=== PATIENT | male | born 1970 | race Caucasian/White ===

== ENCOUNTER 2023-07-13 14:47 | Emergency (ER) | payer OTHER, SELFPAY ==
[2023-07-13 15:01] VITALS: BP 98/67; PULSE 103; RESP 16; TEMP 37.2; O2SAT 94
[2023-07-13 15:07] VITALS: BP 130/90; PULSE 118; O2SAT 98; BMI 29.8
[2023-07-13 15:11] VITALS: BP 108/61; PULSE 98; RESP 22
--- NOTE | 2023-07-13 16:08 | ECG_ITS ---
Test Reason : FALL Blood Pressure : / mmHG Vent. Rate : 093 BPM Atrial Rate : 093 BPM P-R Int : 224 ms QRS Dur : 086 ms QT Int : 366 ms P-R-T Axes : 040 -08 006 degrees QTc Int : 455 ms Sinus rhythm with 1st degree A-V block Otherwise normal ECG No previous ECGs available Referred By: Generic ED Physician Electronically Signed By:JESSE GRIFFIN MD
[2023-07-13 16:22] LABS: MANUAL DIFF FLAG NO
[2023-07-13 16:23] LABS: Basophils Absolute Auto 0.1 X10*3/uL (0.0-0.2); Basophils Percent Auto 0.7 % (0-2); Eosinophils Percent Auto 0.5 % (0-4); Hematocrit 40.3 % (42.0-52.0); Hemoglobin 13.6 g/dl (14.0-18.0); Imm Gran Abs Auto 0.02 X10*3/uL (0.00-0.03); Imm Gran Pct Auto 0.3 % (0.0-0.4); Lymphocytes Percent Auto 26.1 % (20-40); Mean Corpuscular HGB Conc 33.7 g/dl (31.0-36.0); Mean Corpuscular Volume 82.9 fL (80.0-98.0); Mean Platelet Volume 10.1 fL (9.4-12.4); Monocytes Absolute Auto 0.6 X10*3/uL (0.1-1.2); Monocytes Percent Auto 7.7 % (2-11); Neutrophils Absolute Auto 4.9 x10*3/uL (2.0-8.3); Neutrophils Percent Auto 64.7 % (45-73); Platelet Count 297 X10*3/uL (160-400); Red Blood Count 4.86 X10*6/uL (4.60-5.80); White Blood Count 7.5 X10*3/uL (4.8-10.8)
--- NOTE | 2023-07-13 16:35 | ED_ITS ---
HPI - Fall General Chief Complaint: Fall Stated Complaint: WEAK,FALL SIDE OF ROAD, H/O MS PER EMS Time Seen by Provider: 07/13/23 16:30 Source: patient Mode of arrival: EMS Limitations: no limitations History of Present Illness ED Provider: ivana PAN Narrative: Patient's history of MS not taking any medication walks with walker was at local grocery store getting stuff lost balance and fell bystander called the EMS patient denied any significant injuries does not know why he is here had only 3 beer prior to arrival Related Data Allergies Allergy/AdvReac Type Severity Reaction Status Date / Time No Known Allergies Allergy Verified 07/13/23 15:10 Review of Systems 2 Review of Systems: Yes all other systems are reviewed and are negative [facility] Social History Social History Alcohol intake: current Alcohol type: beer Smoked in Last 30 Days: Yes Use of substances other than those prescribed or required for medical reasons: No Advance Directives: No Advance Directives Information Provided: No Do you have a plan to hurt others: No Plan Physical Exam 2 Vital Signs: Vital Signs: Last Vital Signs Temp 99.0 F 07/13/23 15:01 Pulse 98 07/13/23 15:11 Resp 22 H 07/13/23 15:11 BP 108/61 07/13/23 15:11 Pulse Ox 94 07/13/23 15:01 O2 Del Method Room Air 07/13/23 15:01 BMI result Body Mass Index 29.8 Appearance: Alert. Oriented X3. No acute distress. Eyes: PERRLA, No Nystagmus ENT: Pharynx normal. Oral Mucosa moist atraumatic normocephalic Neck: Normal inspection. Neck supple. CVS: Normal heart rate and rhythm. Pulses normal. Respiratory: No respiratory distress. Equal air entry bilateral, no wheezing/rales/rhonchi Abdomen: Soft and nontender. Bowel sounds are present, no mass palpable, no CVA tenderness Skin: Skin warm and dry. Normal skin color. Normal skin turgor. Extremities: No lower extremity edema. No calf tenderness Neuro: Oriented X 3. Residual weakness left No sensory deficit.No cerebellar signs , cranial nerves II-XII intact Medical Decision Making Medical Decision Making MDM Narrative: Patient is status post mechanical fall with chronic balance problems walking with a walker secondary to MS no signs of injury will discharge patient Lab Data [facility] Lab Attestation statement: I reviewed the patient's lab results. 07/13/23 16:18 07/13/23 16:19 Labs: Lab Results 07/13/23 07/13/23 Range/Units 16:18 16:19 WBC 7.5 (4.8-10.8) X10*3/uL RBC 4.86 (4.60-5.80) X10*6/uL Hgb 13.6 L (14.0-18.0) g/dl Hct 40.3 L (42.0-52.0) % MCV 82.9 (80.0-98.0) fL MCH 28.0 (27.0-33.0) pg MCHC 33.7 (31.0-36.0) g/dl RDW 15.0 (11.0-16.0) % Plt Count 297 (160-400) X10*3/uL MPV 10.1 (9.4-12.4) fL Immature Gran % (Auto) 0.3 (0.0-0.4) % Neut % (Auto) 64.7 (45-73) % Lymph % (Auto) 26.1 (20-40) % [place] % (Auto) 7.7 (2-11) % Eos % (Auto) 0.5 (0-4) % Baso % (Auto) 0.7 (0-2) % Lymph # (Auto) 2.0 (1.2-4.9) X10*3/uL [place] # (Auto) 0.6 (0.1-1.2) X10*3/uL Eos # (Auto) 0.0 (0.0-0.4) X10*3/uL Baso # (Auto) 0.1 (0.0-0.2) X10*3/uL Abs Immat Gran (auto) 0.02 (0.00-0.03) X10*3/uL Absolute Neuts (auto) 4.9 (2.0-8.3) x10*3/uL Absolute Nucleated RBC 0.000 (0.0-0.012) X10*3/uL Nucleated RBC % (auto) 0.0 (0.0-0.2) /100WBC Sodium 141 (135-145) mmol/L Potassium 3.5 (3.3-5.1) mmol/L Chloride 108 (96-108) mmol/L Carbon Dioxide 20 L (22-29) mmol/L Anion Gap 17 (12-20) BUN 10 (9-16) mg/dL Creatinine 1.07 (0.5-1.4) mg/dL Estim Creat Clear Calc 103.7 Estimated GFR > 60 Random Glucose 85 (60-115) mg/dL Calcium 9.2 (8.4-10.2) mg/dL Total Bilirubin 0.3 (0.0-1.0) mg/dL AST 16 (5-37) U/L ALT 14 (0-40) U/L Alkaline Phosphatase 52 (39-117) U/L Total Protein 7.4 (6.5-8.0) g/dL Albumin 4.0 (3.5-5.0) g/dL Ethyl Alcohol 35 mg/dL Discharge Plan Discharge Clinical Impression: Fall Patient Disposition: Home, Self-Care Instructions: Fall Prevention (ED) Additional Instructions: Care and cautions as advised Follow up with neurologist for MS Referrals: Prieto Allen MD [Physician] - 2 weeks Print Language: Croatian
[2023-07-13 16:38] LABS: Alanine Aminotransferase 14 U/L (0-40); Alkaline Phosphatase 52 U/L (39-117); Anion Gap 17 (12-20); Aspartate Amino Transferase 16 U/L (5-37); Bilirubin Total 0.3 mg/dL (0.0-1.0); Blood Urea Nitrogen 10 mg/dL (9-16); Calcium 9.2 mg/dL (8.4-10.2); Carbon Dioxide 20 mmol/L (22-29); Chloride 108 mmol/L (96-108); Creatinine Clr Calc Pharmacy 103.7; Estimated Glomerular Filt Rate > 60; Ethanol 35 mg/dL; Glucose Random 85 mg/dL (60-115); Potassium 3.5 mmol/L (3.3-5.1); Sodium 141 mmol/L (135-145); Total Protein 7.4 g/dL (6.5-8.0)
[2023-07-13 18:08] VITALS: BP 132/76; PULSE 87; RESP 14; TEMP 37.2; O2SAT 95
== END 2023-07-13 18:10 | disposition home or self-care (01) ==
PROVIDERS: Emergency Provider Internal Medicine
DX: G35 Multiple sclerosis (principal); Z91.81 History of falling
CPT/HCPCS: 36415; 80053; 80307; 85025; 93005; 99283; 99284

== ENCOUNTER → 2023-07-13 16:08 | Outpatient (BNV) | payer OTHER, SELFPAY | PROVIDERS: Emergency Provider Internal Medicine; Visit Provider Internal Medicine Cardiovascular Disease | DX: I44.0 Atrioventricular block, first degree (principal) | CPT/HCPCS: 93010 ==